=== PATIENT | male | born 1985 | race Two or more races ===

== ENCOUNTER 2017-01-20 16:43 | Observation (INO) | payer SELFPAY ==
[~2017-01-20] VITALS: Ht 185.4 cm; Wt 104.3 kg
[2017-01-20] MEDS ORDERED: SODIUM CHLORIDE 0.9% 1,000 ML IV ONE (16:53)
[2017-01-20 17:30] LABS: Basophils # (auto) 0 uL; Basophils % (auto) 0.3 % (0.0-2.0); DEFINITIVE VIEW TRANSMISSION; Eosinophils # (auto) 0.2 uL; Eosinophils % (auto) 1.7 % (0.0-7.0); Hematocrit 49.3 % (41.0-53.0); Hemoglobin 16.1 g/dL (13.5-17.5); Lymphocytes # (auto) 6.7 uL; Lymphocytes % (auto) 51.9 % (10.0-50.0); Mean Corpuscular Hemoglobin 27.6 pg (28.0-32.0); Mean Corpuscular Hgb Conc. 32.8 g/dL (32.0-36.0); Mean Corpuscular Volume 84.2 fL (80.0-100.0); Mean Platelet Volume 8.6 fL (7.4-10.4); Monocytes # (auto) 0.7 uL; Monocytes % (auto) 5.6 % (0.0-12.0); Neutrophils # (auto) 5.2 uL; Neutrophils % (auto) 40.5 % (37.0-80.0); Platelet Count (auto) 348 10^3/uL (140-450); Red Cell Distribution Width 14.8 % (11.6-16.0); White Blood Cell 12.8 10^3/uL (4.4-10.8)
[2017-01-20 17:37] LABS: Albumin 3.8 g/dL (3.4-5.0); Anion Gap 24 (5-15); Aspartate Aminotransferase 46 U/L (15-37); BUN/Creatinine Ratio 7.6; Blood Urea Nitrogen 17 mg/dL (7-18); Calcium 9.3 mg/dL (8.5-10.1); Carbon Dioxide 13 mmol/L (21-32); Chloride 106 mmol/L (98-107); GFR African American 44 mL/min; GFR Non-African American 36 mL/min; Glucose 150 mg/dL (74-106); Potassium 4.4 mmol/L (3.5-5.1); Sodium 143 mmol/L (136-145)
[2017-01-20 17:42] LABS: Alkaline Phosphatase 260 U/L (45-117); Bilirubin, Total 0.1 mg/dL (0.2-1.0); Total Protein 7.5 g/dL (6.4-8.2)
[2017-01-20 17:46] LABS: INR 1.03 (0.9-1.15); Prothrombin Time 11.2 sec (9.37-12.3)
[2017-01-20 17:47] LABS: B-Type Natriuretic Peptide 4.25 pg/mL (0-100)
[2017-01-20 17:50] LABS: Magnesium 4.7 mg/dL (1.6-2.6)
[2017-01-20 17:55] LABS: Temperature: 23.5 C (20.0-25.0)
[2017-01-20] MEDS ORDERED: CALCIUM GLUC 4.65 MEQ/10ML 4.65 MEQ in SODIUM CHL 0.9% 50 ML IV ONE (18:30)
[2017-01-20] MEDS ORDERED: FUROSEMIDE 40 MG/4 ML VIAL IV ONE (18:30)
[2017-01-20] MEDS ORDERED: SODIUM CHLORIDE 0.9% 500 ML IV ONE (18:30)
[2017-01-20 18:36] LABS: Urine Bilirubin Negative (Negative); Urine Color Yellow (Yellow); Urine Glucose Normal (Normal); Urine Hyaline Cast FEW /lpf (0 - 2); Urine Ketone TRACE (Negative); Urine Nitrite Negative (Negative); Urine RBC <1 /hpf (0 - 3); Urine Squamous Epithelial Cell FEW /hpf (<5); Urine Urobilinogen Normal (Negative); Urine pH 6.5 (5.0-8.0)
[2017-01-20 18:37] LABS: Urine Blood 1+ /uL (Negative)
[2017-01-20 21:11] VITALS: BP 140/60
== END 2017-01-20 21:12 | disposition home or self-care (01) | DRG 922 ==
LOC: ER 16:47 → EDBD 16:47 → OVERFLOW 16:56 → ER 21:12
PROVIDERS: ADMIT Emergency Medicine; ATTEND Emergency Medicine
DX: T75.1XXA Unspecified effects of drowning and nonfatal submersion, initial encounter (principal); J81.0 Acute pulmonary edema; E83.41 Hypermagnesemia; N28.9 Disorder of kidney and ureter, unspecified; R73.9 Hyperglycemia, unspecified; Y93.89 Activity, other specified; Y92.89 Other specified places as the place of occurrence of the external cause; Y99.8 Other external cause status
CPT/HCPCS: 36415; 71010; 80053; 81001; 83735; 83880; 84443; 84484; 85025; 85610; 85730; 93005; 96365; 96375; 99285; G0378; J0610; J1940; J7040